=== PATIENT | female | born 1940 | race Hispanic/Latino ===

== ENCOUNTER 2023-08-09 08:00 | Outpatient (RCR) | payer MEDICARE ==
[~2023-08-09 08:00] MED LIST: COLLAGENASE OINTMENT 30 GM TUBE ONE; LIDOCAINE VISC 2% SOLN 15 ML UDC ONE; MINERAL OIL/PETROLAT/GLYCERI 6OZ BTL ONE
== END 2023-08-09 14:04 | disposition home or self-care (01) ==
LOC: WCC 08:00
PROVIDERS: ATTEND Podiatrist Foot & Ankle Surgery
DX: L97.323 Non-pressure chronic ulcer of left ankle with necrosis of muscle (principal); I77.1 Stricture of artery; I79.8 Other disorders of arteries, arterioles and capillaries in diseases classified elsewhere; I99.8 Other disorder of circulatory system
CPT/HCPCS: 11042; 97602 ×10; 99212 ×10; 99213; G0277 ×17